=== PATIENT | female | born 1985 | race Caucasian/White ===

== ENCOUNTER 2016-06-08 23:04 | Inpatient (IN) | payer OTHER ==
[~2016-06-08] VITALS: Ht 167.6 cm; Wt 75.0 kg
[~2016-06-08 23:04] MED LIST: ACET50TA PO; DOCU10CA PO; IBUP80TA PO; PRENTAB40 PO
[2016-06-08 23:14] VITALS: BP 148/94
[2016-06-08] MEDS ORDERED: LACTATED RINGER'S 1000 ML IV STA (23:22)
[2016-06-08 23:32] VITALS: BP 126/70
[2016-06-08] MEDS ORDERED: ceFAZolin 2 GM/D5W 50 ML IV BAG (J0690) As Ordered ONE (23:53)
[2016-06-08 23:56] LABS: MEAN CORPUSCULAR HEMOGLOBIN 26.3 pg (27.0-33.0); MEAN CORPUSCULAR HGB CONC 32.4 g/dl (32.0-36.5); MEAN CORPUSCULAR VOLUME 81.2 fl (80.0-96.0); RED CELL DISTRIBUTION WIDTH 14.5 % (11.5-14.5); WHITE BLOOD COUNT 11.5 K/mm3 (4.0-10.0)
[2016-06-09] MEDS ORDERED: FENTANYL 2MCG/ML ROPIVACAINE 0.2% IN 0.9% NACL 200ML IVBAG As Ordered ONE (00:05)
[2016-06-09] MEDS ORDERED: OXYTOCIN 30 UNITS IN 0.9% NaCl 500ML IV BAG (J2590) As Ordered ONE (00:12)
[2016-06-09 00:22] VITALS: BP 142/84
[2016-06-09 00:37] VITALS: BP 135/85
[2016-06-09] MEDS ORDERED: METHYLERGONOVINE MALEATE 0.2 MG TAB PO PRN (00:45)
[2016-06-09] MEDS ORDERED: DOCUSATE SODIUM 100 MG CAP PO PRN (00:45)
[2016-06-09] MEDS ORDERED: MEASLES,MUMPS,RUBELLA VACCINE INJ (MMR-II) (90707) SC SCH (00:45)
[2016-06-09] MEDS ORDERED: ANUSOL HC CREAM 30GM TOP PRN (00:45)
[2016-06-09] MEDS ORDERED: DIBUCAINE 1% OINTMENT 30GM TOP PRN (00:45)
[2016-06-09] MEDS ORDERED: RHOGAM 300 MCG (1500 IU) INJ (J2790) IM SCH (00:45)
[2016-06-09] MEDS ORDERED: PROMETHAZINE 25 MG TAB PO PRN (00:45)
[2016-06-09] MEDS ORDERED: ONDANSETRON 4MG/2ML VIAL (J2405) IV PRN (00:45)
[2016-06-09 00:52] VITALS: BP 129/70
[2016-06-09] MEDS: IBUPROFEN 800 MG TAB PO PRN ×3 (01:33→19:59)
[2016-06-09] MEDS: ACETAMINOPHEN 500 MG TAB PO PRN ×3 (01:33→17:09)
[2016-06-09 02:39] VITALS: BP 116/69
[2016-06-09] MEDS ORDERED: LIDOCAINE 1% MDV INJ 50 ML VIAL SC ONE (04:00)
[2016-06-09 06:30] VITALS: BP 123/67
[2016-06-09] MEDS: LR 1,000 ML IV SCH ×4 (07:22→23:22)
[2016-06-09] MEDS: PRENATAL VITAMIN TAB PO SCH (09:00)
[2016-06-09 17:47] VITALS: BP 136/71
[2016-06-10] MEDS: ACETAMINOPHEN 500 MG TAB PO PRN (00:11)
[2016-06-10 05:40] VITALS: BP 112/73
[2016-06-10] MEDS: PRENATAL VITAMIN TAB PO SCH (08:46)
[2016-06-10] MEDS: IBUPROFEN 800 MG TAB PO PRN (08:47)
[2016-06-10] MEDS ORDERED: IBUP-1114 PO (10:44)
[2016-06-10] MEDS ORDERED: ACET50TA PO (10:44)
[2016-06-10] MEDS ORDERED: NUPE1OIN2 TOP (10:44)
[2016-06-10] MEDS ORDERED: COLA100C3 PO (10:44)
== END 2016-06-10 16:17 | disposition home or self-care (01) | DRG 774 ==
LOC: M LDO 23:04 → M LDI 23:20 → M OBS 06-09 02:24
PROVIDERS: ADMIT Student in an Organized Health Care Education/Training Program; ATTEND Student in an Organized Health Care Education/Training Program
PROC: 10E0XZZ Delivery of Products of Conception, External Approach (ICD-10-PCS; principal; 2016-06-09)
PROC: 0KQM0ZZ Repair Perineum Muscle, Open Approach (ICD-10-PCS; 2016-06-09)
DX: O13.4 Gestational [pregnancy-induced] hypertension without significant proteinuria, complicating childbirth (principal); O99.42 Diseases of the circulatory system complicating childbirth; O99.824 Streptococcus B carrier state complicating childbirth; Z3A.39 39 weeks gestation of pregnancy; I73.00 Raynaud's syndrome without gangrene; O70.1 Second degree perineal laceration during delivery; Z37.0 Single live birth

== ENCOUNTER → 2017-03-04 | Outpatient (CLI) | payer OTHER ==
[~2017-03-04] MED LIST changes: -ACET50TA PO; -DOCU10CA PO; -IBUP80TA PO; -PRENTAB40 PO; +PROHANCE 279.3MG/ML 15ML VIAL (A9576) As Ordered
== END ==
LOC: M RAD 06:36
DX: R51 Headache (principal)